=== PATIENT | male | born 1990 | race Caucasian/White ===

== ENCOUNTER → 2018-01-08 | Outpatient (REF) ==
[2018-01-09 09:02] LABS: RUBELLA IgG QUALITATIVE IMMUNE (IMMUNE)
== END ==
LOC: M LAB 14:19
DX: Z02.1 Encounter for pre-employment examination (principal)

== ENCOUNTER → 2018-04-27 | Outpatient (CLI) | payer BC | LOC: M RAD 12:13 | DX: N50.89 Other specified disorders of the male genital organs (principal); N50.3 Cyst of epididymis; N43.3 Hydrocele, unspecified | CPT/HCPCS: 76870 ==

== ENCOUNTER → 2018-05-04 | Outpatient (CLI) | payer BC ==
[2018-05-04 12:15] LABS: HEMATOCRIT 37.8 % (42.0-52.0); HEMOGLOBIN 12.6 g/dl (13.5-17.5); MEAN CORPUSCULAR HEMOGLOBIN 28.6 pg (27.0-33.0); MEAN CORPUSCULAR HGB CONC 33.3 g/dl (32.0-36.5); MEAN CORPUSCULAR VOLUME 85.9 fl (80.0-96.0); PLATELET COUNT, AUTOMATED 166 10^3/uL (150-450); RED CELL DISTRIBUTION WIDTH 14.1 % (11.5-14.5); WHITE BLOOD COUNT 7.7 10^3/uL (4.0-10.0)
[2018-05-04 12:31] LABS: ANION GAP 7 MEQ/L (8-16); BLOOD UREA NITROGEN 8 MG/DL (7-18); CARBON DIOXIDE LEVEL 28 MEQ/L (21-32); CHLORIDE LEVEL 109 MEQ/L (98-107); CREATININE FOR GFR 0.75 MG/DL (0.70-1.30); GLOMERULAR FILTRATION RATE > 60.0 (>60); GLUCOSE, FASTING 57 MG/DL (70-100); POTASSIUM SERUM 4.5 MEQ/L (3.5-5.1); SODIUM LEVEL 144 MEQ/L (136-145)
[2018-05-04 12:32] LABS: ALBUMIN 3.7 GM/DL (3.2-5.2); ALBUMIN/GLOBULIN RATIO 1.19 (1.00-1.93); ALKALINE PHOSPHATASE 89 U/L (45-117); ALT/SGPT 24 U/L (12-78); AST/SGOT 17 U/L (7-37); BILIRUBIN,TOTAL 0.4 MG/DL (0.2-1.0); RHEUMATOID FACTOR QUANT < 10.0 IU/ML (<15.0); THYROID STIMULATING HORMONE 0.588 uIU/ML (0.358-3.740); TOTAL PROTEIN 6.8 GM/DL (6.4-8.2)
[2018-05-04 15:37] LABS: TOTAL 25(OH) VITAMIN D 24.9 NG/ML (30.0-100.0); VITAMIN B12 LEVEL 1229 PG/ML (247-911)
[2018-05-06 00:07] LABS: CYCLIC CITRULLINATED PEPTIDE 6 units (0-19)
== END ==
LOC: M LAB 11:17
DX: Z98.84 Bariatric surgery status (principal)
CPT/HCPCS: 84443

== ENCOUNTER 2019-01-25 11:42 | Emergency (ER) | payer BC ==
[~2019-01-25] VITALS: Ht 172.7 cm; Wt 85.1 kg
[2019-01-25 12:26] LABS: HEMATOCRIT 40.7 % (42.0-52.0); HEMOGLOBIN 12.7 g/dl (13.5-17.5); MEAN CORPUSCULAR HEMOGLOBIN 26.8 pg (27.0-33.0); MEAN CORPUSCULAR HGB CONC 31.2 g/dl (32.0-36.5); PLATELET COUNT, AUTOMATED 153 10^3/uL (150-450); RED BLOOD COUNT 4.73 10^6/uL (4.30-6.10); WHITE BLOOD COUNT 6.5 10^3/uL (4.0-10.0)
[2019-01-25 12:45] VITALS: BP 184/92
[2019-01-25] MEDS ORDERED: **hydrALAZINE HCL** 25 MG TAB PO ONE (12:45)
--- NOTE | 2019-01-25 12:56 | REP ---
Chest two views HISTORY: Hypertension Comparison: None The lungs are clear. The heart is normal in size. The pulmonary vasculature is normal in appearance. The bony structure is intact. IMPRESSION: No acute disease. Electronically Signed by Chito Pride MD 01/25/2019 12:47 P
[2019-01-25 12:59] LABS: BLOOD UREA NITROGEN 9 MG/DL (7-18); CALCIUM LEVEL 8.3 MG/DL (8.5-10.1); CARBON DIOXIDE LEVEL 27 MEQ/L (21-32); CHLORIDE LEVEL 109 MEQ/L (98-107); CREATININE FOR GFR 0.78 MG/DL (0.70-1.30); GLOMERULAR FILTRATION RATE > 60.0 (>60); GLUCOSE, FASTING 87 MG/DL (70-100); POTASSIUM SERUM 4.8 MEQ/L (3.5-5.1); SODIUM LEVEL 141 MEQ/L (136-145)
[2019-01-25 13:20] LABS: APPEARANCE, URINE MANUAL CLEAR (CLEAR); BILIRUBIN, URINE MANUAL NEGATIVE (NEGATIVE); BLOOD URINE MANUAL NEGATIVE (NEGATIVE); COLOR, URINE MANUAL YELLOW (YELLOW); GLUCOSE, URINE (UA) MANUAL NEGATIVE (NEGATIVE); KETONE, URINE MANUAL NEGATIVE (NEGATIVE); LEUKOCYTE ESTERASE, URINE MAN NEGATIVE (NEGATIVE); NITRITE, URINE MANUAL NEGATIVE (NEGATIVE); PROTEIN, URINE MANUAL NEGATIVE (NEGATIVE); SPECIFIC GRAVITY,URINE MANUAL 1.005 (1.002-1.035); UROBILINOGEN, URINE MANUAL NORMAL (NORMAL)
[2019-01-25 13:35] LABS: AMPHETAMINES LEVEL URINE NEGATIVE (NEGATIVE); BARBITURATES URINE NEGATIVE (NEGATIVE); BENZODIAZEPINES URINE NEGATIVE (NEGATIVE); CANNABINOIDS URINE NEGATIVE (NEGATIVE); COCAINE METABOLITE URINE NEGATIVE (NEGATIVE); METHADONE URINE NEGATIVE (NEGATIVE); OPIATES URINE NEGATIVE (NEGATIVE); PHENCYCLIDINE URINE NEGATIVE (NEGATIVE)
[2019-01-25 13:40] VITALS: BP 151/85
[2019-01-25] MEDS ORDERED: LISI-542 PO ×2 (13:44→13:50)
--- NOTE | 2019-01-25 15:45 | ECGEPIP ---
Stationary ECG Study [facility] - ED Test Date: 2019-01-25 Pat Name: BOBBY REAL Department: Room: - Gender: M Glass Cleaner: : 1990 Requested By: Shelley Valenzuela Order Number: [id number] Reading MD: Milo Li Measurements Intervals [place] Rate: 68 P: 42 SD: 183 QRS: 40 QRSD: 102 T: 47 QT: 366 QTc: 391 Interpretive Statements SINUS RHYTHM NO PRIORS FOR COMPARISON Electronically Signed On 01-25-2019 15:45:11 EDT by Milo Li
== END 2019-01-25 14:00 | disposition home or self-care (01) ==
LOC: M ED 11:42
DX: I16.0 Hypertensive urgency (principal); Z98.84 Bariatric surgery status; Z72.0 Tobacco use

== ENCOUNTER 2020-04-04 22:27 | Emergency (ER) | payer BC, SELFPAY ==
[~2020-04-04] VITALS: Ht 172.7 cm; Wt 68.2 kg
[~2020-04-04 22:27] MED LIST: LISI-542 PO
[2020-04-04] MEDS ORDERED: hydrOXYzine 50 MG TAB PO STA (22:46)
[2020-04-04] MEDS ORDERED: NS 500 ML IV ONE (23:00)
[2020-04-04 23:28] LABS: HEMOGLOBIN 11.7 g/dl (13.5-17.5); MEAN CORPUSCULAR HGB CONC 32.5 g/dl (32.0-36.5); MEAN CORPUSCULAR VOLUME 82.9 fl (80.0-96.0); RED BLOOD COUNT 4.34 10^6/uL (4.30-6.10); WHITE BLOOD COUNT 6.5 10^3/uL (4.0-10.0)
[2020-04-04 23:45] LABS: PLATELET COUNT, AUTOMATED 60 10^3/uL (150-450)
[2020-04-05] LABS: ACETAMINOPHEN LEVEL < 2.0 UG/ML (10.0-30.0); ALBUMIN 3.8 GM/DL (3.2-5.2); ALT/SGPT 228 U/L (12-78); BILIRUBIN,DIRECT 0.3 MG/DL (0.0-0.2); BILIRUBIN,TOTAL 0.8 MG/DL (0.2-1.0); BLOOD UREA NITROGEN 17 MG/DL (7-18); CALCIUM LEVEL 8.7 MG/DL (8.5-10.1); CARBON DIOXIDE LEVEL 26 MEQ/L (21-32); CHLORIDE LEVEL 104 MEQ/L (98-107); CK-MB VALUE MASS 1.9 NG/ML (<3.6); CPK CREATINE PHOSPHOKINASE 449 U/L (39-308); CREATININE FOR GFR 0.92 MG/DL (0.70-1.30); ETHYL ALCOHOL (ETHANOL) < 0.003 % (0.000-0.010); GLOMERULAR FILTRATION RATE > 60.0 (>60); GLUCOSE, FASTING 79 MG/DL (70-100); LIPASE 255 U/L (73-393); MAGNESIUM LEVEL 2.1 MG/DL (1.8-2.4); MB/CK RELATIVE INDEX 0.42 (< OR =4); POTASSIUM SERUM 3.2 MEQ/L (3.5-5.1); SODIUM LEVEL 137 MEQ/L (136-145); TOTAL PROTEIN 7.1 GM/DL (6.4-8.2); TROPONIN I < 0.02 NG/ML (< 0.10)
[2020-04-05] MEDS ORDERED: HYDR-3363 PO (00:10)
[2020-04-05 00:38] VITALS: BP 152/86
--- NOTE | 2020-04-05 00:54 | REP ---
Clinical: Chest wall pain . Comparison: 01/25/2019 . Findings: The mediastinum and cardiac silhouette are stable and within normal limits for portable technique. The lung briscoe are clear without acute consolidation, effusion, or pneumothorax. Skeletal structures are intact. Impression: No acute cardiopulmonary process appreciated. Electronically Signed by Aren Valle MD 04/05/2020 12:45 A
[2020-04-05 07:09] LABS: HEPATITIS B SURFACE ANTIGEN NEGATIVE (NEGATIVE)
[2020-04-05 07:37] LABS: HEPATITIS B CORE ANTIBODY IGM NEGATIVE (NEGATIVE)
[2020-04-05 07:39] LABS: HEPATITIS A ANTIBODY IGM NEGATIVE (NEGATIVE)
--- NOTE | 2020-04-05 07:57 | ECGEPIP ---
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
[2020-04-05 10:18] LABS: HIV 1&2 SCREEN CENTAUR NEGATIVE (NEGATIVE)
== END 2020-04-05 00:41 | disposition home or self-care (01) ==
LOC: M ED 22:27 → EDBD 22:27 → M ED 04-05 00:41
DX: F43.0 Acute stress reaction (principal); D69.6 Thrombocytopenia, unspecified; F10.10 Alcohol abuse, uncomplicated; M06.9 Rheumatoid arthritis, unspecified; Z98.84 Bariatric surgery status
CPT/HCPCS: 36415; 71045; 80048; 80076; 82550; 82553; 83690; 83735; 84443; 84484; 85027; 85049; 85055; 86705; 86709; 86803; 87340; 87389; 93005; 93041; 94760; 99284; G0480

== ENCOUNTER 2021-01-08 18:51 | Emergency (ER) | payer SELFPAY ==
[~2021-01-08] VITALS: Ht 172.7 cm; Wt 73.5 kg
[~2021-01-08 18:51] MED LIST changes: +HYDR-3363 PO; -LISI-542 PO; +LISI-898 PO
[2021-01-08] MEDS ORDERED: LIDOCAINE W/EPINEPHRINE 1% 20ML VIAL SC ONE (20:55)
[2021-01-08] MEDS ORDERED: AUGM875T28 PO (21:20)
[2021-01-08 21:27] VITALS: BP 138/62
== END 2021-01-08 21:45 | disposition home or self-care (01) ==
LOC: M ED 18:51
DX: S51.802A Unspecified open wound of left forearm, initial encounter (principal); W54.0XXA Bitten by dog, initial encounter; Y92.019 Unspecified place in single-family (private) house as the place of occurrence of the external cause; Y93.9 Activity, unspecified; Y99.9 Unspecified external cause status; Z98.84 Bariatric surgery status; Z88.6 Allergy status to analgesic agent

== ENCOUNTER 2021-04-25 07:34 | Outpatient (RCR) | payer SELFPAY ==
[~2021-04-25 07:34] MED LIST changes: +AUGM875T28 PO
== END 2021-05-09 ==
LOC: M OUTALCOH 07:34
PROVIDERS: ATTEND Psychiatry & Neurology Psychiatry
DX: Z03.89 Encounter for observation for other suspected diseases and conditions ruled out (principal)

== ENCOUNTER 2023-05-28 03:32 | Emergency (ER) | payer MEDICARE, SELFPAY ==
[~2023-05-28] VITALS: Ht 172.7 cm; Wt 75.5 kg
[~2023-05-28 03:32] MED LIST changes: -LISI-898 PO; +LISI5TAB11 PO
[2023-05-28 03:33] VITALS: BP 164/91; TEMP 97.9; O2SAT 100
[2023-05-28] MEDS ORDERED: TRAZ-252 (03:38)
[2023-05-28] MEDS ORDERED: LISI40TA4 (03:38)
[2023-05-28] MEDS ORDERED: HYDR-643 PO (03:38)
[2023-05-28] MEDS ORDERED: ASPIRIN 81MG CHEW TABLET PO ONE (03:55)
[2023-05-28 04:21] LABS: BASO % 0.4 % (0.0-1.0); EOS # 0.1 10^3/uL (0.0-0.5); EOS % 1.3 % (0.0-3.0); HEMATOCRIT 37.6 % (42.0-52.0); HEMOGLOBIN 11.7 g/dl (13.5-17.5); LYMPH # 2.1 10^3/uL (1.5-5.0); LYMPH % 37.8 % (24.0-44.0); MEAN CORPUSCULAR HEMOGLOBIN 26.6 pg (27.0-33.0); MEAN CORPUSCULAR HGB CONC 31.1 g/dl (32.0-36.5); MEAN CORPUSCULAR VOLUME 85.5 fl (80.0-96.0); MONO # 0.5 10^3/uL (0.0-0.8); MONO % 8.3 % (2.0-8.0); NEUTROPHILS # 2.8 10^3/uL (1.5-8.5); PLATELET COUNT, AUTOMATED 190 10^3/uL (150-450); WHITE BLOOD COUNT 5.4 10^3/uL (4.0-10.0)
[2023-05-28 04:51] LABS: CK-MB VALUE MASS 2.9 NG/ML (<3.6)
[2023-05-28 04:53] LABS: BLOOD UREA NITROGEN 9 MG/DL (9-23); CALCIUM LEVEL 8.1 MG/DL (8.5-10.1); CARBON DIOXIDE LEVEL 27 MMOL/L (20-31); CHLORIDE LEVEL 108 MMOL/L (98-107); CPK CREATINE PHOSPHOKINASE 157 U/L (46-171); CREATININE FOR GFR 0.71 MG/DL (0.70-1.30); GLOMERULAR FILTRATION RATE > 60.0 (>60); GLUCOSE, FASTING 86 MG/DL (60-100); MB/CK RELATIVE INDEX 1.84 (< OR =4); POTASSIUM SERUM 5.1 MMOL/L (3.5-5.1); SODIUM LEVEL 141 MMOL/L (136-145)
[2023-05-28] MEDS ORDERED: LORazepam 2 MG/ML 1ML VIAL IV STA (05:01)
[2023-05-28] MEDS ORDERED: ISOVUE-370 76% 100ML VIAL As Ordered ONE (05:08)
[2023-05-28 06:03] LABS: CK-MB VALUE MASS 1.3 NG/ML (<3.6)
[2023-05-28 06:05] LABS: CPK CREATINE PHOSPHOKINASE 134 U/L (46-171); MB/CK RELATIVE INDEX 0.97 (< OR =4)
== END 2023-05-28 06:58 | disposition home or self-care (01) ==
LOC: M ED 03:32
DX: R07.9 Chest pain, unspecified (principal); F41.1 Generalized anxiety disorder; R91.1 Solitary pulmonary nodule; I10 Essential (primary) hypertension; F17.200 Nicotine dependence, unspecified, uncomplicated; Z98.84 Bariatric surgery status; Z88.6 Allergy status to analgesic agent; Z79.811 Long term (current) use of aromatase inhibitors; Z79.899 Other long term (current) drug therapy
CPT/HCPCS: 71045; 71275; 80048; 82550; 82553; 84484; 85025; 93005; 93041; 94760; 96374; 99284; J2060; Q9967

== ENCOUNTER 2023-09-15 07:01 | Emergency (ER) | payer OTHER ==
[~2023-09-15] VITALS: Ht 172.7 cm; Wt 85.2 kg
[~2023-09-15 07:01] MED LIST changes: +CEPH500C PO; +HYDR-643 PO; +LISI40TA4; +TADA2.5T; +TRAZ-252
[2023-09-15] MEDS: LORazepam 2 MG/ML 1ML VIAL IV STA ×2 (07:33→07:59)
[2023-09-15 08:07] LABS: BASO % 0.5 % (0.0-1.0); EOS # 0.1 10^3/uL (0.0-0.5); EOS % 1.6 % (0.0-3.0); HEMATOCRIT 37.3 % (42.0-52.0); HEMOGLOBIN 11.7 g/dl (13.5-17.5); LIPASE 24 U/L (12-53); LYMPH % 35.5 % (24.0-44.0); MEAN CORPUSCULAR HEMOGLOBIN 28.3 pg (27.0-33.0); MEAN CORPUSCULAR HGB CONC 31.4 g/dl (32.0-36.5); MEAN CORPUSCULAR VOLUME 90.1 fl (80.0-96.0); MONO # 0.5 10^3/uL (0.0-0.8); MONO % 8.2 % (2.0-8.0); PLATELET COUNT, AUTOMATED 215 10^3/uL (150-450); RED BLOOD COUNT 4.14 10^6/uL (4.30-6.10); WHITE BLOOD COUNT 5.6 10^3/uL (4.0-10.0)
[2023-09-15 08:08] LABS: CPK CREATINE PHOSPHOKINASE 239 U/L (46-171)
[2023-09-15 08:09] LABS: ALBUMIN 3.4 G/DL (3.2-5.2); ALKALINE PHOSPHATASE 74 U/L (46-116); ALT/SGPT 23 U/L (7.0-40); AST/SGOT 19 U/L (<34); BILIRUBIN,DIRECT < 0.1 MG/DL (<0.4); BILIRUBIN,TOTAL 0.2 MG/DL (0.3-1.2); BLOOD UREA NITROGEN 13 MG/DL (9-23); CALCIUM LEVEL 8.3 MG/DL (8.5-10.1); CARBON DIOXIDE LEVEL 27 MMOL/L (20-31); CHLORIDE LEVEL 105 MMOL/L (98-107); CK-MB VALUE MASS 2.5 NG/ML (<3.6); CREATININE FOR GFR 0.89 MG/DL (0.70-1.30); GLOMERULAR FILTRATION RATE > 60.0 (>60); GLUCOSE, FASTING 91 MG/DL (60-100); MB/CK RELATIVE INDEX 1.04 (< OR =4); SODIUM LEVEL 137 MMOL/L (136-145); TOTAL PROTEIN 6.3 G/DL (5.7-8.2)
[2023-09-15 08:11] LABS: THYROID STIMULATING HORMONE 0.959 uIU/ML (0.55-4.78)
[2023-09-15 08:13] LABS: INR 0.99; PARTIAL THROMBOPLASTIN TIME 29.7 SECONDS (24.8-34.2); PROTHROMBIN TIME 12.8 SECONDS (12.5-14.5)
[2023-09-15 08:16] LABS: D-DIMER QUANT < 0.27 ug/mL (<0.5)
[2023-09-15] MEDS ORDERED: NS 1,000 ML IV ONE (08:25)
[2023-09-15 09:09] LABS: CK-MB VALUE MASS 2.6 NG/ML (<3.6)
[2023-09-15 09:16] LABS: CPK CREATINE PHOSPHOKINASE 202 U/L (46-171); MB/CK RELATIVE INDEX 1.28 (< OR =4)
[2023-09-15 09:39] VITALS: BP 150/70; TEMP 96.5; O2SAT 99
== END 2023-09-15 09:47 | disposition home or self-care (01) ==
LOC: M ED 07:01
DX: R07.9 Chest pain, unspecified (principal); I10 Essential (primary) hypertension; F41.9 Anxiety disorder, unspecified; I44.0 Atrioventricular block, first degree; I45.9 Conduction disorder, unspecified; F17.200 Nicotine dependence, unspecified, uncomplicated; Z88.6 Allergy status to analgesic agent; Z98.84 Bariatric surgery status; Z79.811 Long term (current) use of aromatase inhibitors; Z79.899 Other long term (current) drug therapy